=== PATIENT | female | born 1970 | race Caucasian/White ===

== ENCOUNTER 2016-07-27 17:29 | Outpatient (CLI) | payer OTHER ==
[~2016-07-27] VITALS: Ht 162.6 cm; Wt 87.1 kg
[~2016-07-27 17:29] MED LIST: CHILD ASPIRIN81 M1 PO; DIFLUCAN150 MG PO; FLAGYL500 MG PO; FLEXERIL10 MG PO; IBUPROFEN800 MG PO; KEFLEX500 MG PO; MOTRIN800 MG PO; NORCO 5/3251 TABLET PO; ZOFRAN ODT4 MG PO
[2016-07-27 18:12] VITALS: BP 138/87
== END 2016-07-27 19:15 | disposition home or self-care (01) ==
LOC: LDRP-OP → 2WEST 17:30
DX: Z04.3 Encounter for examination and observation following other accident (principal); O99.89 Other specified diseases and conditions complicating pregnancy, childbirth and the puerperium; Z3A.31 31 weeks gestation of pregnancy
CPT/HCPCS: 59025; G0378

== ENCOUNTER 2016-07-28 18:15 | Outpatient (CLI) | payer OTHER ==
[2016-07-28 18:50] VITALS: BP 162/84
[2016-07-28 19:14] VITALS: BP 130/91
== END 2016-07-28 19:30 | disposition home or self-care (01) ==
LOC: LDRP-OP 18:15 → 2WEST 18:16 → LDRP-OP 10-24 21:34
DX: O21.0 Mild hyperemesis gravidarum (principal); O99.89 Other specified diseases and conditions complicating pregnancy, childbirth and the puerperium; Z3A.31 31 weeks gestation of pregnancy
CPT/HCPCS: 59025; G0378

== ENCOUNTER 2016-09-18 06:15 | Inpatient (IN) | payer OTHER ==
[~2016-09-18] VITALS: Ht 162.6 cm; Wt 88.6 kg
[2016-09-18] VITALS (22 sets, daily range): BP systolic 120–155; BP diastolic 55–93
[2016-09-18] MEDS ORDERED: PRENATAL TABLE1 EAC3 PO (07:08)
[2016-09-18] MEDS ORDERED: FERREX 150 FOR1 EACH PO (07:09)
[2016-09-18] MEDS ORDERED: LO-DOSE ASPIRIN81 M2 PO (07:10)
[2016-09-18] MEDS ORDERED: FOLIC ACID0.4 MG PO (07:11)
[2016-09-18] MEDS ORDERED: FIBER THERAPY0.52 GM PO (07:12)
[2016-09-18] MEDS ORDERED: VITAMIN B12 100MCG PO (07:13)
[2016-09-18 07:52] LABS: EOSINOPHIL (%) 0.2 % (0-5); IMMATURE GRANULOCYTE (%) 1.1 % (0.0-0.7); IMMATURE GRANULOCYTE COUNT 0.1 K/uL; LYMPHOCYTE COUNT 1.1 K/uL (1.0-2.8); MCHC 34.1 G/DL (30.0-36.0); MCV 85.3 FL (83-99); MEAN PLAT.VOLUME 9.5 uM^3 (9.5-12.4); MONOCYTE (%) 4.6 % (3-12); MONOCYTE COUNT 0.4 K/uL (0-0.8); NEUTROPHIL (%) 82.1 % (45-76); NEUTROPHIL COUNT 7.6 K/uL (1.8-6.4); PLATELET COUNT 322 K/uL (156-360); RBC DIS.WIDTH-CV 14.4 % (11.8-14.6); RBC DIS.WIDTH-SD 44.4 % (39-53); RED BLOOD COUNT 4.34 M/uL (3.80-5.20); WHITE BLOOD COUNT 9.2 K/uL (4.1-10.2)
[2016-09-19] VITALS (16 sets, daily range): BP systolic 96–216; BP diastolic 48–97
[2016-09-20] VITALS (8 sets, daily range): BP systolic 121–161; BP diastolic 67–90
[2016-09-20] MEDS ORDERED: IBUPROFEN800 MG PO (00:39)
[2016-09-20 08:37] LABS: EOSINOPHIL (%) 0 % (0-5); HEMATOCRIT 40.2 % (36.0-46.0); IMMATURE GRANULOCYTE (%) 0.5 % (0.0-0.7); IMMATURE GRANULOCYTE COUNT 0.1 K/uL; LYMPHOCYTE COUNT 1.3 K/uL (1.0-2.8); MCH 29.7 PG (29.0-34.0); MCHC 34.8 G/DL (30.0-36.0); MCV 85.2 FL (83-99); MEAN PLAT.VOLUME 9.7 uM^3 (9.5-12.4); MONOCYTE (%) 3.5 % (3-12); MONOCYTE COUNT 0.5 K/uL (0-0.8); NEUTROPHIL (%) 87.3 % (45-76); NEUTROPHIL COUNT 13.3 K/uL (1.8-6.4); PLATELET COUNT 328 K/uL (156-360); RBC DIS.WIDTH-CV 14.6 % (11.8-14.6); RED BLOOD COUNT 4.72 M/uL (3.80-5.20)
[2016-09-20 08:38] LABS: WHITE BLOOD COUNT 15.2 K/uL (4.1-10.2)
[2016-09-21 07:14] VITALS: BP 121/77
[2016-09-21] MEDS ORDERED: BREAST PUMP MC (12:28)
== END 2016-09-21 14:10 | disposition home or self-care (01) | DRG 774 ==
LOC: LDRP-OP 06:15 → 2WEST 06:16 → LDRP-OP 09:50 → 2WEST 09-19 23:28 → LDRP-OP 10-24 19:44
PROVIDERS: Advanced Practice Midwife; Obstetrics & Gynecology
PROC: 3E0P7GC Introduction of Other Therapeutic Substance into Female Reproductive, Via Natural or Artificial Opening (ICD-10-PCS; principal; 2016-09-18)
PROC: 10E0XZZ Delivery of Products of Conception, External Approach (ICD-10-PCS; 2016-09-19)
DX: O99.824 Streptococcus B carrier state complicating childbirth (principal); O43.213 Placenta accreta, third trimester; O43.123 Velamentous insertion of umbilical cord, third trimester; Z37.0 Single live birth; O09.513 Supervision of elderly primigravida, third trimester; Z3A.39 39 weeks gestation of pregnancy; O43.193 Other malformation of placenta, third trimester; F41.9 Anxiety disorder, unspecified; K58.9 Irritable bowel syndrome, unspecified; O99.344 Other mental disorders complicating childbirth; O99.62 Diseases of the digestive system complicating childbirth; E66.9 Obesity, unspecified; O99.214 Obesity complicating childbirth; O12.04 Gestational edema, complicating childbirth; D25.9 Leiomyoma of uterus, unspecified; O34.13 Maternal care for benign tumor of corpus uteri, third trimester; Z68.33 Body mass index [BMI] 33.0-33.9, adult; O09.43 Supervision of pregnancy with grand multiparity, third trimester
CPT/HCPCS: 76856; 85025; 86850; 86900; 86901; 88307; C1726; G0378; J0595; J2405; J2540; J7120; Q0169